=== PATIENT | female | born 1945 | race Caucasian/White ===

== ENCOUNTER 2017-02-20 13:39 | Inpatient (IN) | payer OTHER ==
[~2017-02-20] VITALS: Ht 160 cm; Wt 82.6 kg
[~2017-02-20 13:39] MED LIST: ACTOS15 MG PO; ALKA SELTZER PO; Aspirin PO; BYETTA SC; Elavil PO; Flonase BOTH NARES; Glucophage PO; LANTUS 3 M100 UNITS1 SC; LOZOL2.5 MG PO; MOTRIN600 MG PO; NORCO 5/3251 TABLET PO; Percocet 5/325,Endoc PO; SYNTHROID125 MCG PO; VIBRAMYCIN100 MG PO; Zestril,Prinivil PO; Zocor PO
[2017-02-20 13:45] VITALS: BP 162/74
[2017-02-20 15:21] LABS: HEMATOCRIT 28.5 % (36.0-46.0); HEMOGLOBIN 9.4 G/DL (11.9-15.5); MCH 29.8 PG (29.0-34.0); MCV 90.5 FL (83-99); PLATELET COUNT 277 K/uL (156-360); RBC DIS.WIDTH-CV 13.6 % (11.8-14.6); RBC DIS.WIDTH-SD 44.1 % (39-53); RED BLOOD COUNT 3.15 M/uL (3.80-5.20); WHITE BLOOD COUNT 7.5 K/uL (4.1-10.2)
[2017-02-20] MEDS ORDERED: TYLENOL REGULA325 MG PO (15:21)
[2017-02-20] MEDS ORDERED: CITRACAL + D E1 EACH PO (15:22)
[2017-02-20] MEDS ORDERED: LOVENOX30 MG/0.3 SC (15:23)
[2017-02-20] MEDS ORDERED: NEURONTIN100 MG PO (15:24)
[2017-02-20] MEDS ORDERED: LANTUS 3 M100 UNITS1 SC (15:25)
[2017-02-20] MEDS ORDERED: MAGNESIUM400 M1 PO (15:26)
[2017-02-20] MEDS ORDERED: CREON 241 CAPSULE PO (15:27)
[2017-02-20] MEDS ORDERED: SENOKOT S,PE1 TABLET PO (15:28)
[2017-02-20] MEDS ORDERED: SODIUM CHLORIDE1 G1 PO (15:29)
[2017-02-20] MEDS ORDERED: GUAIFENESIN200 M2 PO (15:31)
[2017-02-20] MEDS ORDERED: HUMALOG100 UNIT/2 SC (15:33)
[2017-02-20] MEDS ORDERED: HUMALOG100 UNIT/2 SQ (15:34)
[2017-02-20] MEDS ORDERED: ROXICODONE5 MG PO (15:35)
[2017-02-20] MEDS ORDERED: VENTOLIN HFA18 GM IH (15:37)
[2017-02-20] MEDS ORDERED: VICTOZA 2-0.6 MG/0.1 SC (15:39)
[2017-02-20 15:43] LABS: ALKALINE PHOSPHATASE 51 IU/L (3-129); ALT (GPT) 15 IU/L (3-49); AST (GOT) 16 IU/L (2-34); CHLORIDE 97 MEQ/L (99-109); CREATININE 0.6 MG/DL (0.6-1.3); GFR ESTIMATE (CALCULATED) > 59 mL/min/; GLUCOSE 249 mg/dL (70-99); POTASSIUM 3.9 MEQ/L (3.7-5.4); SODIUM 134 MEQ/L (136-147); TOTAL BILIRUBIN 0.5 MG/DL (0.0-1.0); TOTAL PROTEIN 6.3 G/DL (6.4-8.3); UREA NITROGEN (BUN) 16 mg/dL (9-23)
[2017-02-20 16:45] LABS: Estimated Average Glucose 131 mg/dL (70-123); HEMOGLOBIN A1c (GLYCOHEMOGLOB) 6.2 % HGB (Below 5.7)
[2017-02-20 21:30] VITALS: BP 135/63
[2017-02-21 00:42] VITALS: BP 142/72
[2017-02-21 05:23] VITALS: BP 155/72
[2017-02-21 15:03] VITALS: BP 150/58
[2017-02-22 05:15] VITALS: BP 140/63
[2017-02-22 15:50] VITALS: BP 145/96
[2017-02-23 05:13] VITALS: BP 121/66
[2017-02-23 15:46] VITALS: BP 120/77
[2017-02-24 06:06] VITALS: BP 129/72
[2017-02-24 15:45] VITALS: BP 106/69
[2017-02-25 05:36] VITALS: BP 125/62
[2017-02-25 07:15] LABS: HEMATOCRIT 31.9 % (36.0-46.0); HEMOGLOBIN 10.4 G/DL (11.9-15.5); MCH 30.1 PG (29.0-34.0); MCHC 32.6 G/DL (30.0-36.0); MCV 92.5 FL (83-99); RBC DIS.WIDTH-CV 14.5 % (11.8-14.6); RBC DIS.WIDTH-SD 47.6 % (39-53); RED BLOOD COUNT 3.45 M/uL (3.80-5.20); WHITE BLOOD COUNT 11.2 K/uL (4.1-10.2)
[2017-02-25 07:18] LABS: PLATELET COUNT 402 K/uL (156-360)
[2017-02-25 08:02] LABS: CHLORIDE 92 MEQ/L (99-109); CREATININE 0.8 MG/DL (0.6-1.3); GFR ESTIMATE (CALCULATED) > 59 mL/min/; GLUCOSE 69 mg/dL (70-99); POTASSIUM 4.2 MEQ/L (3.7-5.4); SODIUM 131 MEQ/L (136-147); UREA NITROGEN (BUN) 19 mg/dL (9-23)
[2017-02-25 15:27] VITALS: BP 121/64; BP 121/72
[2017-02-26 04:49] VITALS: BP 118/57
[2017-02-26 22:04] VITALS: BP 132/60
[2017-02-27 04:35] VITALS: BP 102/57
[2017-02-27 05:55] LABS: HEMATOCRIT 28.2 % (36.0-46.0); HEMOGLOBIN 9.4 G/DL (11.9-15.5); MCH 30.3 PG (29.0-34.0); MCHC 33.3 G/DL (30.0-36.0); PLATELET COUNT 428 K/uL (156-360); RBC DIS.WIDTH-CV 14.5 % (11.8-14.6); RBC DIS.WIDTH-SD 46.7 % (39-53); WHITE BLOOD COUNT 10.8 K/uL (4.1-10.2)
[2017-02-27 06:11] LABS: CHLORIDE 94 MEQ/L (99-109); CREATININE 0.7 MG/DL (0.6-1.3); GFR ESTIMATE (CALCULATED) > 59 mL/min/; POTASSIUM 4.7 MEQ/L (3.7-5.4); SODIUM 127 MEQ/L (136-147); UREA NITROGEN (BUN) 15 mg/dL (9-23)
[2017-02-27 06:12] LABS: GLUCOSE 287 mg/dL (70-99)
[2017-02-27 15:26] VITALS: BP 98/52
[2017-02-28 05:33] VITALS: BP 124/60
[2017-02-28 06:03] LABS: BASOPHIL (%) 0.8 % (0-1); BASOPHIL COUNT 0.1 K/uL (0-0.1); EOSINOPHIL (%) 2.9 % (0-5); EOSINOPHIL COUNT 0.3 K/uL (0-0.3); HEMATOCRIT 28.5 % (36.0-46.0); HEMOGLOBIN 9.2 G/DL (11.9-15.5); IMMATURE GRANULOCYTE (%) 1.7 % (0.0-0.7); LYMPHOCYTE (%) 24.2 % (15-42); LYMPHOCYTE COUNT 2.5 K/uL (1.0-2.8); MCH 29.7 PG (29.0-34.0); MCHC 32.3 G/DL (30.0-36.0); MCV 91.9 FL (83-99); MONOCYTE (%) 7.8 % (3-12); MONOCYTE COUNT 0.8 K/uL (0-0.8); NEUTROPHIL (%) 62.6 % (45-76); NEUTROPHIL COUNT 6.5 K/uL (1.8-6.4); PLATELET COUNT 425 K/uL (156-360); RBC DIS.WIDTH-CV 14.5 % (11.8-14.6); RBC DIS.WIDTH-SD 47.8 % (39-53); WHITE BLOOD COUNT 10.3 K/uL (4.1-10.2)
[2017-02-28 09:28] LABS: CHLORIDE 96 MEQ/L (99-109); CREATININE 0.6 MG/DL (0.6-1.3); GFR ESTIMATE (CALCULATED) > 59 mL/min/; MAGNESIUM 1.3 mg/dl (1.3-2.7); POTASSIUM 3.8 MEQ/L (3.7-5.4); SODIUM 133 MEQ/L (136-147); THYROTROPIN (TSH) 1.4 MIU/L (0.4-5.5); UREA NITROGEN (BUN) 18 mg/dL (9-23); URIC ACID 5.3 mg/dL (3.1-9.2)
[2017-02-28 09:30] LABS: GLUCOSE 95 mg/dL (70-99)
[2017-02-28 15:37] VITALS: BP 121/58
[2017-03-01 05:30] VITALS: BP 150/77
[2017-03-01 06:09] LABS: CHLORIDE 96 MEQ/L (99-109); CREATININE 0.6 MG/DL (0.6-1.3); GFR ESTIMATE (CALCULATED) > 59 mL/min/; GLUCOSE 71 mg/dL (70-99); POTASSIUM 3.9 MEQ/L (3.7-5.4); SODIUM 134 MEQ/L (136-147); UREA NITROGEN (BUN) 15 mg/dL (9-23)
[2017-03-01 15:30] VITALS: BP 120/68
[2017-03-02 04:50] VITALS: BP 139/62
[2017-03-02 15:52] VITALS: BP 134/68
[2017-03-03 05:02] VITALS: BP 127/59
[2017-03-03 06:11] LABS: ALBUMIN 2.9 G/DL (3.2-4.8); CHLORIDE 97 MEQ/L (99-109); CREATININE 0.7 MG/DL (0.6-1.3); GFR ESTIMATE (CALCULATED) > 59 mL/min/; GLUCOSE 96 mg/dL (70-99); PHOSPHORUS 3.4 mg/dL (2.5-4.9); POTASSIUM 3.9 MEQ/L (3.7-5.4); SODIUM 134 MEQ/L (136-147); UREA NITROGEN (BUN) 13 mg/dL (9-23)
[2017-03-03 16:00] VITALS: BP 130/54
[2017-03-04 05:00] VITALS: BP 144/71
[2017-03-04 06:52] LABS: ALBUMIN 3.2 G/DL (3.2-4.8); CHLORIDE 98 MEQ/L (99-109); CREATININE 0.7 MG/DL (0.6-1.3); GFR ESTIMATE (CALCULATED) > 59 mL/min/; GLUCOSE 90 mg/dL (70-99); POTASSIUM 3.4 MEQ/L (3.7-5.4); SODIUM 138 MEQ/L (136-147); UREA NITROGEN (BUN) 14 mg/dL (9-23)
[2017-03-04 15:50] VITALS: BP 115/64
[2017-03-05 05:01] VITALS: BP 134/63
[2017-03-05 10:00] LABS: ALBUMIN 3.2 G/DL (3.2-4.8); CHLORIDE 97 MEQ/L (99-109); CREATININE 0.7 MG/DL (0.6-1.3); GFR ESTIMATE (CALCULATED) > 59 mL/min/; SODIUM 134 MEQ/L (136-147); UREA NITROGEN (BUN) 15 mg/dL (9-23)
[2017-03-05 10:02] LABS: GLUCOSE 143 mg/dL (70-99)
[2017-03-05 16:34] VITALS: BP 138/62
[2017-03-06 05:17] VITALS: BP 144/66
[2017-03-06 07:43] LABS: ALBUMIN 3.2 G/DL (3.2-4.8); CHLORIDE 95 MEQ/L (99-109); CREATININE 0.7 MG/DL (0.6-1.3); GFR ESTIMATE (CALCULATED) > 59 mL/min/; GLUCOSE 115 mg/dL (70-99); PHOSPHORUS 3.2 mg/dL (2.5-4.9); POTASSIUM 3.5 MEQ/L (3.7-5.4); SODIUM 135 MEQ/L (136-147); UREA NITROGEN (BUN) 12 mg/dL (9-23)
[2017-03-06 15:29] VITALS: BP 133/58
[2017-03-07 05:55] VITALS: BP 179/76
[2017-03-07 06:08] LABS: HEMATOCRIT 33.5 % (36.0-46.0); HEMOGLOBIN 10.9 G/DL (11.9-15.5); MCH 30.1 PG (29.0-34.0); MCHC 32.5 G/DL (30.0-36.0); MCV 92.5 FL (83-99); PLATELET COUNT 410 K/uL (156-360); RBC DIS.WIDTH-CV 14.6 % (11.8-14.6); RBC DIS.WIDTH-SD 49.1 % (39-53); RED BLOOD COUNT 3.62 M/uL (3.80-5.20); WHITE BLOOD COUNT 9.5 K/uL (4.1-10.2)
[2017-03-07 06:39] LABS: ALBUMIN 3.4 G/DL (3.2-4.8); ALKALINE PHOSPHATASE 134 IU/L (3-129); ALT (GPT) 14 IU/L (3-49); AST (GOT) 30 IU/L (2-34); CHLORIDE 94 MEQ/L (99-109); CREATININE 0.7 MG/DL (0.6-1.3); GFR ESTIMATE (CALCULATED) > 59 mL/min/; GLUCOSE 91 mg/dL (70-99); POTASSIUM 4.1 MEQ/L (3.7-5.4); SODIUM 133 MEQ/L (136-147); TOTAL BILIRUBIN 0.5 MG/DL (0.0-1.0); UREA NITROGEN (BUN) 14 mg/dL (9-23)
[2017-03-07 06:42] LABS: ALBUMIN 3.3 G/DL (3.2-4.8); CHLORIDE 94 MEQ/L (99-109); CREATININE 0.8 MG/DL (0.6-1.3); GFR ESTIMATE (CALCULATED) > 59 mL/min/; GLUCOSE 95 mg/dL (70-99); PHOSPHORUS 3.8 mg/dL (2.5-4.9); POTASSIUM 4.4 MEQ/L (3.7-5.4); SODIUM 132 MEQ/L (136-147); UREA NITROGEN (BUN) 14 mg/dL (9-23)
[2017-03-07 10:54] LABS: APPEARANCE CLOUDY ((CLEAR)); BILIRUBIN NEGATIVE; BLOOD NEGATIVE; COLOR YELLOW ((YELLOW)); GLUCOSE (STRIP) NEGATIVE; KETONES NEGATIVE; LEUKOCYTES MODERATE; NITRITE NEGATIVE; PROTEIN (STRIP) NEGATIVE; SPECIFIC GRAVITY 1.011 (1.000-1.030); UROBILINOGEN 0.2 MG/DL (0.2-1.0)
[2017-03-07 11:03] LABS: BACTERIA RARE /HPF; EPITHELIAL CELLS 2+ /HPF; HYALINE CASTS 20-30 /LPF; MUCUS TRACE /LPF; RED BLOOD CELLS 0-5 /HPF (0-5); WHITE BLOOD CELLS 20-30 /HPF (0-5)
[2017-03-07 15:33] VITALS: BP 115/56
[2017-03-08 05:48] VITALS: BP 132/65
[2017-03-08 08:40] LABS: ALBUMIN 3.1 G/DL (3.2-4.8); CHLORIDE 94 MEQ/L (99-109); CREATININE 0.7 MG/DL (0.6-1.3); GFR ESTIMATE (CALCULATED) > 59 mL/min/; GLUCOSE 104 mg/dL (70-99); PHOSPHORUS 3.2 mg/dL (2.5-4.9); POTASSIUM 3.5 MEQ/L (3.7-5.4); SODIUM 133 MEQ/L (136-147); UREA NITROGEN (BUN) 17 mg/dL (9-23)
[2017-03-08] MEDS ORDERED: LOVENOX30 MG/0.3 SC (13:38)
[2017-03-08] MEDS ORDERED: METFORMIN HCL1000 MG PO (14:41)
[2017-03-08] MEDS ORDERED: ACTOS15 MG PO (14:41)
[2017-03-08] MEDS ORDERED: VENTOLIN HFA18 GM IH (14:41)
[2017-03-08] MEDS ORDERED: K-DUR20 MEQ PO (14:41)
[2017-03-08] MEDS ORDERED: LOZOL2.5 MG PO (14:41)
[2017-03-08] MEDS ORDERED: CREON 241 CAPSULE PO (14:41)
[2017-03-08] MEDS ORDERED: THERAGRAN1 TABLET PO (14:41)
[2017-03-08] MEDS ORDERED: PRAVASTATIN SOD40 MG PO (14:41)
[2017-03-08] MEDS ORDERED: METFORMIN HCL500 MG PO (14:41)
[2017-03-08] MEDS ORDERED: CITRACAL + D E1 EACH PO (14:41)
[2017-03-08] MEDS ORDERED: FLONASE16 G1 BOTH NARES (14:41)
[2017-03-08] MEDS ORDERED: SODIUM CHLORIDE1 G1 PO (14:41)
[2017-03-08] MEDS ORDERED: FUROSEMIDE20 MG PO (14:41)
[2017-03-08] MEDS ORDERED: SYNTHROID125 MCG PO (14:41)
[2017-03-08] MEDS ORDERED: LANTUS 3 M100 UNITS1 SC (14:41)
[2017-03-08] MEDS ORDERED: POLYETHYLENE GL17 GM PO (14:41)
[2017-03-08] MEDS ORDERED: SENOKOT S,PE1 TABLET PO (14:41)
[2017-03-08] MEDS ORDERED: VICTOZA 2-0.6 MG/0.1 SC (14:41)
[2017-03-08 15:38] VITALS: BP 124/56
[2017-03-09 06:15] VITALS: BP 120/68
[2017-03-09 06:57] LABS: ALBUMIN 3.2 G/DL (3.2-4.8); CHLORIDE 96 MEQ/L (99-109); CREATININE 0.7 MG/DL (0.6-1.3); GFR ESTIMATE (CALCULATED) > 59 mL/min/; GLUCOSE 85 mg/dL (70-99); PHOSPHORUS 2.9 mg/dL (2.5-4.9); SODIUM 137 MEQ/L (136-147); UREA NITROGEN (BUN) 16 mg/dL (9-23)
[2017-03-09 06:59] LABS: POTASSIUM 4.7 MEQ/L (3.7-5.4)
== END 2017-03-09 15:10 | disposition home health service (06) | DRG 560 ==
LOC: 3WEST 13:39 → ENPENDDIS 03-12
PROVIDERS: Internal Medicine Nephrology; Physical Medicine & Rehabilitation Pain Medicine; Psychiatry & Neurology Neurology
PROC: F07M0ZZ Range of Motion and Joint Mobility Treatment of Musculoskeletal System - Whole Body (ICD-10-PCS; principal; 2017-02-20)
DX: S72.001D Fracture of unspecified part of neck of right femur, subsequent encounter for closed fracture with routine healing (principal); E22.2 Syndrome of inappropriate secretion of antidiuretic hormone; T43.015A Adverse effect of tricyclic antidepressants, initial encounter; T46.4X5A Adverse effect of angiotensin-converting-enzyme inhibitors, initial encounter; T40.605A Adverse effect of unspecified narcotics, initial encounter; R26.9 Unspecified abnormalities of gait and mobility; R27.0 Ataxia, unspecified; Z96.641 Presence of right artificial hip joint; S42.411D Displaced simple supracondylar fracture without intercondylar fracture of right humerus, subsequent encounter for fracture with routine healing; W01.0XXD Fall on same level from slipping, tripping and stumbling without subsequent striking against object, subsequent encounter; D62 Acute posthemorrhagic anemia; E11.42 Type 2 diabetes mellitus with diabetic polyneuropathy; M12.5 Traumatic arthropathy; R00.0 Tachycardia, unspecified; D72.829 Elevated white blood cell count, unspecified; E87.6 Hypokalemia; I89.0 Lymphedema, not elsewhere classified; R05 Cough; I10 Essential (primary) hypertension; E78.5 Hyperlipidemia, unspecified; E03.9 Hypothyroidism, unspecified; Z79.4 Long term (current) use of insulin
CPT/HCPCS: 71045; 71046; 73200; 80048; 80053; 80069; 81003; 82533 91; 82948; 83036; 83735; 83935; 84300; 84443; 84550; 85025; 85027; 87086; 94640; 97110 GO; 97530 GP; 99202; J1650; J1815